=== PATIENT | male | born 1965 | race Caucasian/White ===

== ENCOUNTER 2016-05-10 13:15 | Observation (INO) | payer MEDICAID ==
[2016-05-10] MEDS ORDERED: MIDAZOLAM HCL 2 MG/2 ML SYR IV ONE (14:16)
[2016-05-10] MEDS ORDERED: LIDOCAINE HCL 1% 20 ML VIAL SUBCUT ONE ×2 (14:16→15:29)
[2016-05-10] MEDS ORDERED: FAMOTIDINE IN SALINE, ISO-OSM 20 MG/50 ML PIGGYBACK IV SCH ×2 (14:16→15:29)
[2016-05-10] MEDS ORDERED: LACTATED RINGERS 1,000 ML IV SCH ×4 (14:16→19:00)
[2016-05-10] MEDS ORDERED: ACETAMINOPHEN 1,000 MG/100 ML VIAL IV ONE (14:21)
[2016-05-10] MEDS ORDERED: FAMOTIDINE IN SALINE, ISO-OSM 50 ML IV ONE (14:21)
[2016-05-10] MEDS ORDERED: MIDAZOLAM HCL 2 MG/2 ML VIAL ONE (14:21)
[2016-05-10] MEDS ORDERED: FENTANYL 250 MCG/5 ML VIAL ONE (14:24)
[2016-05-10] MEDS ORDERED: ROCURONIUM BROMIDE 50 MG/5 ML VIAL IV ONE (14:24)
[2016-05-10] MEDS ORDERED: SUCCINYLCHOLINE CHLORIDE 200 MG/10 ML VIAL ONE (14:24)
[2016-05-10] MEDS ORDERED: ONDANSETRON HCL 4 MG/2 ML VIAL ONE (14:24)
[2016-05-10] MEDS ORDERED: KETOROLAC TROMETHAMINE 30 MG/ML VIAL ONE (14:25)
[2016-05-10] MEDS ORDERED: DEXAMETHASONE 10 MG/ML VIAL ONE (14:25)
[2016-05-10] MEDS ORDERED: LIDOCAINE HCL 2% 20 ML VIAL ONE (14:26)
[2016-05-10] MEDS ORDERED: LIDOCAINE HCL 2% JELLY 1 APP/5 ML TUBE ONE (14:26)
[2016-05-10] MEDS ORDERED: BUPIVACAINE HCL/PF 0.25% 10 ML VIAL INJ ONE (14:29)
[2016-05-10] MEDS ORDERED: ACETAMINOPHEN 1,000 MG/100 ML VIAL IV SCH ×2 (14:30→20:30)
[2016-05-10] MEDS ORDERED: HYDROmorphone HCL 1 MG/ML SYR IV PRN (15:29)
[2016-05-10] MEDS ORDERED: MORPHINE SULFATE 10 MG/ML SYR IV PRN (15:29)
[2016-05-10] MEDS ORDERED: FENTANYL 100 MCG/2 ML VIAL IV PRN (15:29)
[2016-05-10] MEDS ORDERED: ONDANSETRON HCL 4 MG/2 ML VIAL IV PRN ×2 (15:29→18:15)
[2016-05-10] MEDS ORDERED: SUGAMMADEX SODIUM 200 MG/2 ML VIAL IV ONE (16:25)
[2016-05-10] MEDS ORDERED: ATROPINE SULFATE 0.4 MG/ML VIAL ONE (16:38)
[2016-05-10] MEDS: FENTANYL 100 MCG/2 ML VIAL ONE ×2 (17:35→17:45)
--- NOTE | 2016-05-10 18:09 | PROCEDURE NOTE: Gen Surgery ---
General Surgery Procedure Note - Date of Encounter Date of Encounter: 05/10/16 - Brief Operative Note (1) Acute pancreatitis Date of procedure: 05/10/16 Pre-Op Diagnosis: biliary pancreatitis Post-op diagnosis: same Procedure: Lap. choly. Repair of umbilical hernia. Anesthesia Type: General Physician: LEXY FLORES Estimated Blood Loss: 50 Pathology: sent X-ray taken: No Sponge and instrument counts: correct Condition: stable Disposition: floor
[2016-05-10] MEDS ORDERED: IBUPROFEN 600 MG TABLET PO PRN (18:15)
[2016-05-10] MEDS: HYDROmorphone HCL 1 MG/ML SYR IV PRN (18:49)
[2016-05-10] MEDS: ENOXAPARIN SODIUM 40 MG/0.4 ML SYR SUBCUT SCH (21:32)
--- NOTE | 2016-05-11 02:27 | OPERATIVE REPORT ---
SURGEON: Akin Waters MD ANESTHESIA: General endotracheal (Fabiano Echevarria CRNA). PREOPERATIVE DIAGNOSES 1. Umbilical hernia. 2. Cholelithiasis with history of gallstone pancreatitis. POSTOPERATIVE DIAGNOSIS 1. Umbilical hernia. 2. Cholelithiasis with history of gallstone pancreatitis. PROCEDURE PERFORMED 1. Repair of umbilical hernia. 2. Laparoscopic cholecystectomy. FINDINGS: At the time of initial laparoscopy the patient had a larger umbilical hernia defect than anticipated. This was incarcerated with preperitoneal fat and omentum. This required resection of this tissue. A 12 mm port was placed through this area. This added an additional 20 minutes to the procedure at the beginning of the case. The gallbladder had minimal adhesions to it. It was slightly thickened. The critical view was able to be obtained and the cystic duct was the last structure divided. There was no spillage of stones or bile. Also on evaluation with laparoscopy the liver did appear normal. It was described as fatty on CT. He did have a right inguinal hernia without contents. The left inguinal region had adhesions and I could not rule out a left inguinal hernia. SUMMARY: The patient was taken to the operating room and placed in the supine position. He was given the smooth induction of general anesthesia via the endotracheal tube. His abdomen was then shaved and prepped with a ChloraPrep solution. Time out was called and the correct patient, correct preoperative medications and correct procedure were verified. After 3 minutes were allowed for the prep to dry, an incision was sharply fashioned above the umbilicus in a curvilinear fashion. Dissection was carried down to the hernia defect. The preperitoneal fat was dissected free from the surrounding tissues. The fascial edges were identified. With further dissection it was decided to resect this fatty tissue so areas were clamped and over sewn with 3-0 Vicryl. Eventually this allowed reduction of the hernia defect. A 12 mm trocar was placed through this defect with the Optiview technique in the intraperitoneal position to confirm. The abdomen was allowed to inflate at this point. In the subxiphoid region local was instilled. The skin was sharply incised. A 5 mm trocar was placed under direct vision and this was followed by a 12 mm trocar. In the anterior axillary line and midclavicular lines local was instilled and the skin sharply incised. 5 mm trocars were placed in both these positions. A dome-down dissection was begun using mostly the hook dissector at 30 luo. Dissection was carried down towards the cystic duct and artery which were both able to be isolated and a critical view was able to be obtained. Once the critical view had been obtained the artery was doubly clipped proximally with one clip placed distally and sharply divided. The duct similarly was doubly clipped proximally with one clip placed distally and sharply divided. The camera was then moved to the subxiphoid port site. The gallbladder was placed in a specimen retrieval bag and pulled out through the umbilical port site. Following this the 12 mm trocar was replaced and the trocars were removed under direct vision. No bleeding was noted. The fascia was closed in the umbilical hernia site with a running 2-0 Prolene suture. The hernia defect was not closed in the subxiphoid port site. The skin was closed with a running subcuticular 4-0 Monocryl in all the incisions. Steri-Strips and dressings were then applied, anesthesia was reversed and the patient was taken from the operating room to the recovery room. YAMEL
[2016-05-11 06:04] LABS: BLOOD UREA NITROGEN 16 mg/dL (9-20); CALCIUM 8.9 mg/dL (8.4-10.2); CHLORIDE 107 mmol/L (98-107); CREATININE 0.8 mg/dL (0.7-1.3); EST GLOMERULAR FILTRATION RATE > 60 mL/min; GLUCOSE 132 mg/dL (70-100); POTASSIUM 4.4 mmol/L (3.5-5.1); SODIUM 137 mmol/L (137-145)
[2016-05-11] MEDS: ACETAMINOPHEN 325 MG TABLET PO PRN ×2 (07:06→21:42)
[2016-05-11] MEDS: HYDROmorphone HCL 1 MG/ML SYR IV PRN ×2 (08:26→08:37)
--- NOTE | 2016-05-11 08:48 | PROGRESS NOTE:General Surgery ---
Assessment and Plan - Date of Encounter Date of Encounter: 05/11/16 (1) Acute pancreatitis Status: Acute Current Visit: No (2) Cholelithiasis Status: Acute Current Visit: No (3) Umbilical hernia, incarcerated Status: Acute Current Visit: Yes (4) Right upper quadrant pain Status: Acute Assessment and plan: I suspect he may have a bile leak. Will do a ct to evaluate. Does not appear cardiac with 12 lead showing a few PVC's but no ischemia. Current Visit: Yes - Time Spent With Patient Total time spent with greater than 50% in coordination of care (as documented) at patient's floor/unit and/or counseling patient: PHOEBE: Gen Surg PN Subjective Patient reports: afebrile, fever, other (Had acute onset of shoulder and right upper quadrant pain.), no feels better, no shortness of breath PHOEBE: Gen Surgery PN Obj Exam - Latest Vital Signs and I&O Latest Vital Signs/I&O: Vital Signs Temp 36.3 C L 05/11/16 06:00 Pulse 56 L 05/11/16 06:00 Resp 16 05/11/16 06:00 BP 116/71 05/11/16 06:00 Pulse Ox 92 05/11/16 06:00 Intake & Output 05/10/16 05/11/16 05/11/16 17:59 05:59 17:59 Intake Total 2903 Output Total 800 Balance 2103 Weight 102.058 kg 102.058 kg Intake: IV 2603 Right Wrist 2603 Oral 300 Output: Urine 800 Stool 0 Other: Urine Appearance Clear Urine Color Yellow Voiding Method Toilet # Bowel Movements 0 - Exam General physical exam: moderate distress Respiratory exam: clear to auscultation Abdomen exam: tender (near incisions. No rigidity or guarding.), bowel sounds, soft - Lab Labs: Laboratory Last Values Sodium 137 mmol/L (137-145) 05/11/16 05:00 Potassium 4.4 mmol/L (3.5-5.1) 05/11/16 05:00 Chloride 107 mmol/L (98-107) 05/11/16 05:00 Carbon Dioxide 25 mmol/L (22-30) 05/11/16 05:00 BUN 16 mg/dL (9-20) 05/11/16 05:00 Creatinine 0.8 mg/dL (0.7-1.3) 05/11/16 05:00 GFR Calculation > 60 mL/min 05/11/16 05:00 Glucose 132 mg/dL (70-100) H 05/11/16 05:00 Calcium 8.9 mg/dL (8.4-10.2) 05/11/16 05:00 Magnesium 2.0 mg/dL (1.6-2.3) 05/11/16 05:00 Quality Questions - VTE Prophylaxis Assessment VTE Present on Admission?: No Patient at risk for venous thromboembolism?: Yes VTE Risk Level: Moderate Risk VTE Medical Contraindication: N/A-VTE Prophylaxis ordered
[2016-05-11 09:09] LABS: WHITE BLOOD COUNT 14.3 X 10^3uL (3.9-10.7)
[2016-05-11 09:10] LABS: ALBUMIN 3.6 g/dL (3.5-5.0); BILIRUBIN, DIRECT 0.5 mg/dL (0.0-0.4); BILIRUBIN, TOTAL 0.9 mg/dL (0.2-1.3); TOTAL PROTEIN 6.5 g/dL (6.3-8.2)
[2016-05-11 09:17] LABS: BASOPHILS 0.1 % (0.0-2.0); HEMATOCRIT 45.5 % (42.0-54.0); HEMOGLOBIN 15.1 g/dL (14.0-18.0); MEAN CELL VOLUME 87.5 fL (84.0-102.0); MEAN CORPUS. HGB CONCENTRATION 33.2 g/dL (32.0-36.0); MEAN PLATELET VOLUME 8.5 fL (7.4-10.4); MONOCYTES 3.3 % (2.0-10.0); MONOCYTES# 0.5 X 10^3uL (0.2-1.0); NEUTROPHILS 89.6 % (54.0-75.0); NEUTROPHILS# 12.8 X 10^3uL (2.6-6.7); RED BLOOD COUNT 5.2 X 10^6uL (4.20-6.10)
--- NOTE | 2016-05-11 10:15 | CT REPORT ---
Radiology report CT scan abdomen with contrast May 11, 2016 CLINICAL HISTORY: Gallbladder removal yesterday, assess for bile leak. PROCEDURE: 100 cc Isovue-300 was administered without complication. Imaging to the abdomen was perfor med. Dose reduction technique was utilized. FINDINGS: In the gallbladder fossa, there are numerous surgical clips. There is no evidence for fluid collection, abscess or other postoperative complication. There is no fluid around the remainder of t he liver particularly inferiorly. No findings that would suggest postoperative bile leak. There is minimal dependent atelectasis at the lung bases. The inferior heart is normal. A small amoun t of free air in the abdomen is consistent with recent surgery. The liver, pancreas, spleen, adrenal glands, and kidneys appear normal. Visualized bowel is unremarkable but limited without oral contrast . The entire pelvis was not visualized. The aorta is normal in size. No adenopathy. There is normal a lignment to the visualized spine. IMPRESSION: Evidence of prior cholecystectomy. The gallbladder fossa region is normal in appearance. No findings to suggest bile leak. No perihepatic fluid or fluid in the gallbladder fossa region. Report called to Dr. Waters. Final Electronic Signature: This report was electronically signed by Sohan Chapman MD on 05/11/2016 1 0:13 AM. rajat /
[2016-05-11] MEDS: ENOXAPARIN SODIUM 40 MG/0.4 ML SYR SUBCUT SCH (11:09)
[2016-05-11] MEDS ORDERED: ONDANSETRON ODT 4 MG TAB.RAPDIS PO PRN (12:30)
[2016-05-11 13:09] LABS: HEMATOCRIT 45.1 % (42.0-54.0); HEMOGLOBIN 15.4 g/dL (14.0-18.0); MEAN CELL VOLUME 86.9 fL (84.0-102.0); MEAN CORPUS. HGB CONCENTRATION 34.1 g/dL (32.0-36.0); MEAN CORPUSCULAR HEMOGLOBIN 29.7 pg (29.0-35.0); MEAN PLATELET VOLUME 8.2 fL (7.4-10.4); PLATELET COUNT 261 X 10^3uL (130-440); RED BLOOD COUNT 5.19 X 10^6uL (4.20-6.10)
[2016-05-11 13:10] LABS: A/G RATIO 1.3; ALBUMIN 3.8 g/dL (3.5-5.0); ALKALINE PHOSPHATASE 60 U/L (38-126); ALT 72 U/L (21-72); AST 33 U/L (17-59); BILIRUBIN, TOTAL 0.8 mg/dL (0.2-1.3); BLOOD UREA NITROGEN 16 mg/dL (9-20); CALCIUM 9.1 mg/dL (8.4-10.2); CHLORIDE 106 mmol/L (98-107); CREATININE 0.8 mg/dL (0.7-1.3); EST GLOMERULAR FILTRATION RATE > 60 mL/min; GLUCOSE 119 mg/dL (70-100); LIPASE 99 U/L (23-300); POTASSIUM 3.9 mmol/L (3.5-5.1); SODIUM 139 mmol/L (137-145); TOTAL PROTEIN 6.7 g/dL (6.3-8.2)
[2016-05-11 13:11] LABS: WHITE BLOOD COUNT 15.9 X 10^3uL (3.9-10.7)
[2016-05-12 05:10] VITALS: O2SAT 90
[2016-05-12 07:27] VITALS: BP 118/75; PULSE 54; RESP 14; TEMP 98
--- NOTE | 2016-05-12 08:16 | DC SUMMARY: Gen Surgery Note ---
Discharge Summary: Surg/OB Provider: Date of Admission: 05/10/16 Admitting Provider: LEXY FLORES MD Attending Provider: LEXY FLORES MD Discharging Provider: LEXY FLORES MD Primary Care Provider: Discharge Date: 05/12/16 - Diagnosis (1) Acute pancreatitis Status: Resolved (2) Cholelithiasis Status: Resolved (3) Umbilical hernia, incarcerated Status: Resolved (4) Right upper quadrant pain Status: Resolved Hospital Course: Mr. BHATIA is a 51 year old male who underwent a lap. choly on 05/10/2016. He had moderate pain post op which was difficult to control with oral medications. I was concerned he might have a bile leak so labs and CT were done with no findings consistent with bile leak noted. He did well and will be discharged today. Discharge - Patient/Caregiver Discharge Instructions Activity Level: No heavy lifting. Diet: Regular diet Follow up: LEXY FLORES MD [ACTIVE (Staff Physician)] - 05/22/16 2:00 pm Overall discharge status: patient is not back to baseline Home Medications: Ondansetron Odt [Zofran Odt*] 4 mg PO Q6H PRN #20 tab.rapdis PRN Reason: Nausea/Vomiting, Use 1st Gen Surgery: Discharge Exam - Latest Vital Signs and I&O Latest Vital Signs/I&O: Vital Signs Temp 36.7 C 05/12/16 07:00 Pulse 54 L 05/12/16 07:00 Resp 14 05/12/16 07:00 BP 118/75 05/12/16 07:00 Pulse Ox 90 05/12/16 07:00 Intake & Output 05/11/16 05/12/16 05/12/16 17:59 05:59 17:59 Intake Total 0 Output Total 0 Balance 0 Intake: Oral 0 Output: Urine 0 Stool 0 Other: Urine Appearance Clear Clear Urine Color Yellow Yellow Voiding Method Toilet Toilet - Exam General physical exam: no distress Respiratory exam: clear to auscultation Abdomen exam: bowel sounds (present), soft, other (wounds look ok.) Discharge Summary Data - Medication History Medication History: Home Medications aspirin EC [Aspirin EC*] 81 mg PO DAILY 04/26/16 Acetaminophen [Tylenol*] 650 mg PO Q4H PRN #0 tablet 04/28/16 Atorvastatin Calcium [Lipitor] 80 mg PO HS #30 tab 04/28/16 Diclofenac 1% Gel [Voltaren Top Gel 1%*] 1 gm TOPICAL QID PRN 05/11/16 Nitroglycerin [Nitrostat*] 0.4 mg SUBLINGUAL DIRECTED 05/11/16 Inpatient Medications 05/10/16 18:15 Acetaminophen [Tylenol] 650 mg PO Q6H PRN HYDROmorphone HCL [Dilaudid] 1 - 2 mg IV Q1H PRN Ondansetron HCl [Zofran] 4 mg IV Q4H PRN oxyCODONE HCL IR [Oxy Ir] 5 mg PO Q3H PRN 05/10/16 19:00 Lactated Ringers [Lr 1000 ml Bag] 1,000 ml IV CONT 05/11/16 12:30 Ondansetron Odt [Zofran Odt] 4 mg PO Q6H PRN Procedures and tests throughout hospitalization: Completed Lab Orders 05/11/16 05:00 BASIC METABOLIC PANEL [CHEM] AMDRAW MAGNESIUM [CHEM] AMDRAW 05/11/16 08:34 CBC AUTO DIF, MDIF/RMOR IF IND [HEM] Stat 05/11/16 08:35 HEPATIC PANEL [CHEM] Stat LIPASE [CHEM] Stat 05/11/16 12:50 CBC WITHOUT A DIFFERENTIAL [HEM] Routine LIPASE [CHEM] Urgent cmp [COMPREHENSIVE METABOLIC PANEL] [CHEM] Urgent Completed Imaging Orders 05/11/16 08:41 ct [CAT SCAN; ABDOMEN W/CON [id number]] [CT] Stat Pending Orders 05/09/16 09:53 Anesthesia Type . NPO After midnight 0000 Pre-op by anesthesia . Resuscitation Status Routine 05/10/16 14:16 Anesthesia Type . Insert Peripheral IV ONCE 05/10/16 15:29 Ekaterina hugger if temp <34 C PRN Notify Anesthesia . 05/10/16 18:15 Admit: Observation Routine Activity: As Tolerated PRN Dressing Change PRN Insert Rust Catheter - PRN PRN Sequential Compression Device WHILE IN BED Telemetry monitoring CONTINUOUS TELE Titrate Oxygen TITRATE B/W 90-95% Vital Signs ROUTINE VITALS (Q4H) Acetaminophen [Tylenol] 650 mg PO Q6H PRN HYDROmorphone HCL [Dilaudid] 1 - 2 mg IV Q1H PRN Ondansetron HCl [Zofran] 4 mg IV Q4H PRN oxyCODONE HCL IR [Oxy Ir] 5 mg PO Q3H PRN 05/10/16 19:00 Lactated Ringers [Lr 1000 ml Bag] 1,000 ml IV CONT 05/10/16 20:00 Transfer to Floor PER PROTOCOL 05/11/16 06:00 May shower with wound uncovere POD #1 05/11/16 10:41 Ice Chips . 05/11/16 12:30 Ondansetron Odt [Zofran Odt] 4 mg PO Q6H PRN 05/11/16 Dinner Cardiac [DIET] Labs on day of discharge: Labs from last 24 hours 05/11/16 05/11/16 05/11/16 12:50 08:35 08:34 WBC 15.9 H 14.3 H RBC 5.19 5.20 Hgb 15.4 15.1 Hct 45.1 45.5 MCV 86.9 87.5 MCH 29.7 29.0 MCHC 34.1 33.2 RDW 12.0 12.0 Plt Count 261 253 MPV 8.2 8.5 Neutrophils % 89.6 H Lymphocytes % 7.0 L Eosinophils % 0.0 Basophils % 0.1 Neutrophils # 12.8 H Lymphocytes # 1.0 Monocytes 3.3 Monocytes # 0.5 Eosinophils # 0.0 Basophils # 0.0 Sodium 139 Potassium 3.9 Chloride 106 Carbon Dioxide 25 BUN 16 Creatinine 0.8 GFR Calculation > 60 Glucose 119 H Calcium 9.1 Total Bilirubin 0.8 0.9 Direct Bilirubin 0.5 H AST 33 38 ALT 72 69 Alkaline Phosphatase 60 62 Total Protein 6.7 6.5 Albumin 3.8 3.6 Albumin/Globulin Ratio 1.3 Lipase 99 80
[2016-05-12] MEDS: ACETAMINOPHEN 325 MG TABLET PO PRN (09:33)
--- NOTE | 2016-05-18 12:56 | PREOPERATIVE H&P ---
The patient is a 51 year old male who presents with abdominal pain. The onset of the pain has been acute and has been occurring in a persistent pattern for 14 hours . The course has been decreasing . The pain is described as a severe sharp pain and stabbing . The pain is described as being located in the epigastrium and radiates to the back . There are no aggravating factors . The pain is not relieved by anything . There has been no associated abdominal mass, bloating or heartburn . There is a medical history of coronary artery disease . Previous evaluations have included CT scan . Problem List/Past Medical (Maria T Gregory R.N.; 05/08/2016 3:08 PM) Myocardial infarct (I21.3)10/2013 Chronic cholecystitis (K81.1) Pancreatitis, gallstone (K85.10) Other hyperlipidemia (E78.4) Allergies (Maria T Gregory R.N.; 05/08/2016 3:09 PM) No Known Drug Xoadcrmib80/13/2017 Immunization History (Maria T Gregory R.N.; 05/08/2016 3:09 PM) Up to date Records at [facility] Family History (Maria T Gregory R.N.; 05/08/2016 3:12 PM) Myocardial Infarction First Degree Relatives, Father. at age 54, Social History (Maria T Gregory R.N.; 05/08/2016 3:12 PM) Tobacco use Never smoker. Alcohol use Does not drink alcohol. Medication History (Maria T Gregory R.N.; 05/08/2016 3:13 PM) Lipitor (20MG Tablet, Oral daily) Active. Adult Aspirin EC Low Strength (81MG Tablet DR, 1 Oral daily) Ordered. Medications Reconciled Past Surgical History (Maria T Gregory R.N.; 05/08/2016 3:13 PM) None05/08/2016 Review of Systems (Akin Waters M.D.; 05/08/2016 3:56 PM) General Present- Feeling well. Not Present- Chills and Fever. Respiratory Not Present- Shortness of Breath. Cardiovascular Present- Heart Problems. Gastrointestinal Not Present- Bloating and Constipation. Male Genitourinary Not Present- Dysuria. Musculoskeletal Present- Backache. Neurological Not Present- Neurological Problems. Psychiatric Not Present- Anxiety. Endocrine Not Present- Diabetes and Thyroid Problems. Hematology Not Present- Anemia. Vitals (Maria T Gregory R.N.; 05/08/2016 3:07 PM) 05/08/2016 3:05 PM Weight: 226.7 lb Height: 68in Body Surface Area: 2.16 m Body Mass Index: 34.47 kg/m Temp.: 98.4F(Temporal) Pulse: 68 (Regular) P.OX: 93% (Room air) BP: 130/80 (Sitting, Left Arm, Standard) Physical Exam (Akin Waters M.D.; 05/08/2016 3:59 PM) General Mental Status-Alert. General Appearance-Cooperative and Well Appearing. Orientation-Oriented X3. Build & Nutrition-Normal. Voice-Normal. Integumentary Skin Lesions-normal. Integumentary General Characteristics Color - normal coloration of skin. Head and Neck Head Head General Characteristics - non tender. Face Global Assessment - atraumatic. Neck Global Assessment - full range of motion, No lymphadenopathy or thyromegaly and supple, no bruit auscultated on the right, no bruit auscultated on the left, no palpable mass on the right, no palpable mass on the left. Thyroid Gland Characteristics - no palpable nodules, enlarged and symmetric. Eye Upper Eyelid - Left-No Lid lag. Upper Eyelid - Bilateral-No Lid lag. Sclera/Conjunctiva - Bilateral-No Subconjunctival hemorrhage, No Yellow. Pupil - Bilateral-Normal. Breast Nipples Discharge - Bilateral - None. Breast - Bilateral-Normal. Breast Lump-No Palpable Breast Mass. Cardiovascular Auscultation Rhythm - Regular. Heart Sounds - Normal heart sounds. Murmurs & Other Heart Sounds - Auscultation of the heart reveals - No Murmurs. Abdomen Inspection Skin - Inspection of the skin of the abdomen reveals - No Scars. Hernias - Indirect umbilical hernia - Incarcerated. Auscultation Auscultation of the abdomen reveals - Bowel sounds normal and No Abdominal bruits. Peripheral Vascular Upper Extremity Inspection - Bilateral - Normal - No Clubbing, No Cyanosis, No Edema, Pulses Intact. Palpation - Radial pulse - Bilateral - Normal. Lower Extremity Inspection - Bilateral - Inspection Normal. Palpation - Femoral pulse - Bilateral - Normal. Popliteal pulse - Bilateral - Normal. Dorsalis pedis pulse - Bilateral - Normal. Posterior tibial pulse - Bilateral - Normal. Neurologic Sensory-Normal. Motor-Normal. Musculoskeletal Orthopedic Exam: Ankle - Right - Edema and Effusion. Assessment & Plan (Akin Waters M.D.; 05/08/2016 4:14 PM) Pancreatitis, gallstone (K85.10) Chronic cholecystitis (K81.1) Current Plans Pt Education - Dr Waters's Post Op Instructions: discussed with patient and provided information. NIRAJ WEST ([id number]) Note:The risks of common duct injury, retained common duct stones, bleeding, bile leak and damage to other organs was discussed. We also discussed the laparoscopic approach to this operation as well as the open approach. It was understood that an open procedure may be needed. The anesthesia was touched upon as well as the most common side effects. Medical problems that may complication the procedure were also reviewed. Post op instructions were provided. A post op appointment was made. A script for tracy was given. Signed by Akin Waters M.D. (05/08/2016 4:21 PM) YAMEL
== END 2016-05-12 08:22 | disposition home or self-care (01) ==
LOC: SDS 13:15 → IN 18:40
PROVIDERS: ADMIT Surgery; ATTEND Surgery
DX: K42.0 Umbilical hernia with obstruction, without gangrene (principal); K85.10 Biliary acute pancreatitis without necrosis or infection; K80.10 Calculus of gallbladder with chronic cholecystitis without obstruction; E78.5 Hyperlipidemia, unspecified; I25.2 Old myocardial infarction; Z79.899 Other long term (current) drug therapy
CPT/HCPCS: 36415; 74160; 80048; 80053; 80076; 83690; 83735; 85025; 85027; 93041; 96372; 96375; 96376; G0378; J0461; J1100; J1170; J1650; J1885; J2250; J2405; J7120